=== PATIENT | male | born 1990 | race Caucasian/White ===

== ENCOUNTER → 2018-03-31 07:39 | Outpatient (CLI) | payer MEDICAID, SELFPAY ==
[2018-03-26 08:58] VITALS: BMI 22.3
[2018-04-02 10:35] LABS: H. PYLORI STOOL AG Negative (Negative)
== END ==
PROVIDERS: Family Provider Internal Medicine; PCP Internal Medicine; Referring Provider Nurse Practitioner Family; Visit Provider Nurse Practitioner Family
DX: K92.1 Melena (principal); R10.13 Epigastric pain
CPT/HCPCS: 82274

== ENCOUNTER → 2018-04-08 08:32 | Outpatient (CLI) | payer MEDICAID, SELFPAY ==
[2018-04-01 14:39] VITALS: BMI 21.7
--- NOTE | 2018-04-08 08:36 | US_ITS ---
STUDY: ULTRASOUND GALLBLADDER REASON FOR VISIT: Male, 27 years old. Right upper quadrant pain TECHNIQUE: Ultrasound evaluation of the gallbladder was performed with real-time and static jiménez-scale imaging. TECHNICAL QUALITY: Adequate. COMPARISON: None. FINDINGS: Gallbladder: Normal distended gallbladder. The gallbladder wall measures 1.9 mm. There is a negative sonographic Ramirez's sign. There is no pericholecystic fluid. There are no gallstones. Common Bile Duct (C.B.D.): The common bile duct measures 2.4 mm. US/Gallbladder IMPRESSION: Normal gallbladder ultrasound examination. No gallstones. No cholecystitis Electronically Signed: Edwin Grant MD at 2:35 EST Tel , Service support ,
== END ==
PROVIDERS: Family Provider Internal Medicine; PCP Internal Medicine; Referring Provider Surgery; Visit Provider Surgery
DX: R10.11 Right upper quadrant pain (principal)
CPT/HCPCS: 76705

== ENCOUNTER 2020-08-04 22:30 | Emergency (ER) | payer SELFPAY ==
[2018-04-01 14:39] VITALS: BMI 21.7
[2020-08-04 22:31] VITALS: BP 170/92; PULSE 92; RESP 16; O2SAT 98
[2020-08-04 22:32] VITALS: BP 170/92; PULSE 92; RESP 16; TEMP 36.9; O2SAT 98; BMI 22.8
[2020-08-04 22:37] VITALS: O2SAT 98
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
[2020-08-04] MEDS: Lidocaine 1% /Epi 1:100 (20ml) 20 ML Vial INFILT (23:33)
[2020-08-05 00:47] VITALS: PULSE 89; RESP 12; O2SAT 96
== END 2020-08-05 00:48 | disposition left against medical advice (07) ==
PROVIDERS: Emergency Provider Student in an Organized Health Care Education/Training Program
DX: S01.01XA Laceration without foreign body of scalp, initial encounter (principal); S50.312A Abrasion of left elbow, initial encounter; F17.200 Nicotine dependence, unspecified, uncomplicated; V29.3XXA Motorcycle rider (driver) (passenger) injured in unspecified nontraffic accident, initial encounter
CPT/HCPCS: 12001; 99283; A4216

== ENCOUNTER 2020-08-10 07:50 | Emergency (ER) | payer SELFPAY ==
[2020-08-10 07:51] VITALS: BP 126/76; PULSE 56; RESP 18; TEMP 36.3; O2SAT 99; BMI 23.7
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
[2020-08-10 08:14] VITALS: O2SAT 98
[2020-08-10] MEDS: Ondansetron 4 MG/2 ML Vial IV (08:37)
[2020-08-10] MEDS: Ketorolac 30 MG/ML Syringe IV (08:37)
[2020-08-10] MEDS: fentaNYL 100 MCG/2 ML Ampul 25 MCG IV (08:37)
[2020-08-10] MEDS: 0.9% Normal Saline 1,000 ML 150 ML IV (09:18)
[2020-08-10] MEDS: Metoclopramide 10 MG/2 ML Vial 5 MG IV (09:19)
[2020-08-10] MEDS: DiphenhydrAMINE 50 MG/ML Syringe 25 MG IV (09:19)
[2020-08-10 10:01] VITALS: BP 134/62; PULSE 74; RESP 15; O2SAT 98
[2020-08-10 10:27] VITALS: BP 138/77; PULSE 62; RESP 15; O2SAT 98
== END 2020-08-10 10:44 | disposition home or self-care (01) ==
PROVIDERS: Emergency Provider Emergency Medicine
DX: S06.0X9A Concussion with loss of consciousness of unspecified duration, initial encounter (principal); F17.200 Nicotine dependence, unspecified, uncomplicated; V29.9XXA Motorcycle rider (driver) (passenger) injured in unspecified traffic accident, initial encounter
CPT/HCPCS: 70450; 72125; 96374; 96375; 99284; J7030; A4216; J2405